=== PATIENT | male | born 1970 | race Caucasian/White ===

== ENCOUNTER → 2020-09-18 | Day surgery (SDC) | payer OTHER ==
[~2020-09-18] VITALS: Ht 182.9 cm; Wt 106.6 kg
[~2020-09-18] MED LIST: BENZOCAINE 20% SPR 60 ML CAN ONE; FENTANYL CITRATE/PF 100MCG/2 ML INJ ONE; LIDOCAINE HCL 2% LOCAL INJ 5 ML SDV VIAL INJ ONE; LOSARTAN-HCTZ1 EACH PO; METOPROLOL SUCC50 MG PO; MIDAZOLAM HCL 2 MG/2 ML VIAL ONE; POVIDONE IODINE 0.05% 0.05 % ML PO ONE; PROPOFOL IV EMULSION 10 MG/ML 20 ML VIAL ONE; SODIUM CHLORIDE 0.9% 1000ML 1,000 ML ONE; XARELTO20 MG PO
[2020-09-18 10:41] VITALS: BP 121/85
[2020-09-18 12:50] VITALS: BP 97/58
[2020-09-18 13:00] VITALS: BP 105/87
[2020-09-18 13:14] VITALS: BP 105/73
[2020-09-18 13:30] VITALS: BP 110/70
== END | disposition home or self-care (01) ==
LOC: CATH LAB 10:20
PROVIDERS: ATTEND Internal Medicine Cardiovascular Disease
DX: I48.91 Unspecified atrial fibrillation (principal); I07.1 Rheumatic tricuspid insufficiency; I37.1 Nonrheumatic pulmonary valve insufficiency; I10 Essential (primary) hypertension; G47.33 Obstructive sleep apnea (adult) (pediatric); F17.210 Nicotine dependence, cigarettes, uncomplicated; Z79.02 Long term (current) use of antithrombotics/antiplatelets
CPT/HCPCS: 93312; 93320; 93325; J2001; J2250; J2704; J3010; J7030; 93307